=== PATIENT | female | born 1965 ===

== ENCOUNTER 2020-09-05 11:00 | Inpatient (IN) | payer OTHER ==
[~2020-09-05] VITALS: Ht 157.5 cm; Wt 72.6 kg
[2020-09-05] MEDS ORDERED: ALLEGRA ALLERGY60 MG PO ×2 (11:01→11:37)
[2020-09-05] MEDS ORDERED: DILTIAZEM ER180 M3 PO ×2 (11:01→11:37)
[2020-09-05] MEDS ORDERED: SINGULAIR10 MG PO (11:01)
[2020-09-05] MEDS ORDERED: LANTUS SOL100 UNIT/1 (11:01)
[2020-09-05] MEDS ORDERED: TROMBONEX CAPS1 EACH PO (11:01)
[2020-09-05] MEDS ORDERED: LANTUS (11:36)
[2020-09-05] MEDS ORDERED: TROMBONEX CAPS1 EACH (11:38)
[2020-09-12] MEDS ORDERED: DAFLONEX-XL 11300 MG (07:54)
[2020-09-16] MEDS ORDERED: HYOSCYAMINE0.125 M1 SL (14:49)
[2020-09-16] MEDS ORDERED: OXYC1TAB9 PO (14:50)
== END 2020-09-16 18:40 | disposition home or self-care (01) | DRG 331 ==
LOC: O/R 09-12 06:04 → SURH 09-12 06:04 → RECOVERY 09-12 11:00 → SURH 09-12 16:20
PROVIDERS: ADMIT Surgery; ATTEND Surgery
PROC: 0DTP4ZZ Resection of Rectum, Percutaneous Endoscopic Approach (ICD-10-PCS; 2020-09-12)
PROC: 0DJD8ZZ Inspection of Lower Intestinal Tract, Via Natural or Artificial Opening Endoscopic (ICD-10-PCS; 2020-09-12)
PROC: 0DBN4ZZ Excision of Sigmoid Colon, Percutaneous Endoscopic Approach (ICD-10-PCS; principal; 2020-09-12 13:15)
DX: K57.20 Diverticulitis of large intestine with perforation and abscess without bleeding (principal); I10 Essential (primary) hypertension; E03.8 Other specified hypothyroidism; J45.20 Mild intermittent asthma, uncomplicated; E11.65 Type 2 diabetes mellitus with hyperglycemia; Z79.84 Long term (current) use of oral hypoglycemic drugs

== ENCOUNTER 2020-09-10 07:00 | Day surgery (SDC) | payer OTHER ==
[~2020-09-10 07:00] MED LIST: ALLEGRA ALLERGY60 MG PO; DILTIAZEM ER180 M3 PO; LANTUS; LANTUS SOL100 UNIT/1; SINGULAIR10 MG PO; TROMBONEX CAPS1 EACH; TROMBONEX CAPS1 EACH PO
== END 2020-09-10 13:45 | disposition home or self-care (01) ==
LOC: AMB-ENDOS 07:00
PROVIDERS: ATTEND Surgery
DX: K62.89 Other specified diseases of anus and rectum (principal); K64.8 Other hemorrhoids; Z20.828 Contact with and (suspected) exposure to other viral communicable diseases